=== PATIENT | female | born 1985 | race Two or more races ===

== ENCOUNTER 2022-01-22 10:14 | Day surgery (SDC) | payer OTHER ==
[~2022-01-22 10:14] MED LIST: MULTIPLE VITAM1 EAC2 PO; PROMETRIUM200 MG PO
== END 2022-01-22 21:00 | disposition home or self-care (01) ==
LOC: CIR.AMB 10:14
PROVIDERS: ATTEND Obstetrics & Gynecology Maternal & Fetal Medicine
DX: O02.1 Missed abortion (principal); O72.2 Delayed and secondary postpartum hemorrhage; Z88.2 Allergy status to sulfonamides; Z20.822 Contact with and (suspected) exposure to COVID-19

== ENCOUNTER 2024-11-02 07:00 | Day surgery (SDC) | payer OTHER ==
[2024-10-27 08:47] VITALS: BP 118/76
[2024-10-27 09:23] LABS: BASO % 0.2 % (0.1-1.2); EOS # 0.07 (0.04-0.54); EOS % 1.1 % (0.7-7.0); LYMPH # 1.54 (1.18-3.74); LYMPH % 24.1 % (19.3-53.1); MEAN PLATELET VOLUME 9.00 fl (9.4-12.4); MONO # 0.45 (0.24-0.82); MONO % 7.0 % (4.7-12.5); NEUT # 4.30 (1.56-6.13); NEUT % 67.1 % (34.0-71.1); RED CELL DISTRIBUTION WIDTH 12.0 % (11.6-14.4)
[2024-10-27 09:48] LABS: INR 1.03
[2024-10-27 09:53] LABS: ALT/SGPT 14.0 U/L (12-78); AST/SGOT 11.0 U/L (15-37); BILIRUBIN TOTAL 0.61 mg/dL (0.3-1.2); BUN CREA RATIO 13.0 (7.0-25.0); CREATININE SERUM 0.7 mg/dL (0.55-1.02); GFR 92.68; GLOBULINA 3.8 G/DL (2.4-3.5); GLUCOSE FASTING 94.0 mg/dL (65-100); OSMOLALITY SERUM 282.0 MOSM/KG (275-295)
[~2024-11-02] VITALS: Ht 162.6 cm; Wt 66.7 kg
[2024-11-02] MEDS ORDERED: POVIDONE-IODINE 118 ML BOTT TOP ONE ×2 (08:28→09:15)
[2024-11-02] MEDS ORDERED: PROMETHAZINE HCL 50 MG/ML AMPUL IM ONE (12:00)
[2024-11-02] MEDS ORDERED: MORPHINE SULFATE 4 MG/ML VIAL IV PRN (12:00)
[2024-11-02] MEDS ORDERED: MORPHINE SULFATE 4 MG/ML VIAL IV ONE (12:20)
== END 2024-11-02 16:20 | disposition home or self-care (01) ==
LOC: CIR.AMB 07:00
PROVIDERS: ATTEND Obstetrics & Gynecology
DX: D06.9 Carcinoma in situ of cervix, unspecified (principal); Z88.2 Allergy status to sulfonamides

== ENCOUNTER 2024-11-07 21:21 | Inpatient (IN) | payer OTHER ==
[~2024-11-07] VITALS: Ht 132.1 cm; Wt 68.0 kg
--- NOTE | 2024-11-07 21:48 | NUR ---
PTE ALERTA Y ORIENTADA X3 VERBALIZA QUE FUE OPERADA POR EL EN 11/02/24 BIOPSIA DE CONO EN LA CERVIS HOY COMENZO CON UN TRI SANGRADO Y EL MEDICO LA ENVIO A IBIS ER.
--- NOTE | 2024-11-07 22:40 | NUR ---
SE ORIENTA PACIENTE SOBRE TX MEDICO EL CUAL INDICA ENTENDER Y ACEPTAR. SE REALIZA EXTRACCION DE MUESTRAS BAJO MEDIDAS ASEPTICAS. SE LE JERALD PACIENTE ROPA PARA SER ADMITIDA OR.
[2024-11-07 23:19] LABS: BASO % 0.1 % (0.1-1.2); EOS # 0.09 (0.04-0.54); EOS % 0.6 % (0.7-7.0); LYMPH # 1.32 (1.18-3.74); LYMPH % 9.3 % (19.3-53.1); MEAN PLATELET VOLUME 9.20 fl (9.4-12.4); MONO # 0.71 (0.24-0.82); MONO % 5.0 % (4.7-12.5); NEUT # 11.95 (1.56-6.13); NEUT % 84.6 % (34.0-71.1); RED CELL DISTRIBUTION WIDTH 12.0 % (11.6-14.4)
[2024-11-07 23:37] LABS: INR 1.0
[2024-11-07 23:45] LABS: ALT/SGPT 43 U/L (12-78); AST/SGOT 28 U/L (15-37); BILIRUBIN TOTAL 0.38 mg/dL (0.3-1.2); BUN CREA RATIO 15 (7.0-25.0); CREATININE SERUM 0.60 mg/dL (0.55-1.02); GFR 110.72; GLOBULINA 2.6 G/DL (2.4-3.5); GLUCOSE FASTING 97 mg/dL (65-100); OSMOLALITY SERUM 282 MOSM/KG (275-295)
[2024-11-07 23:49] LABS: HCG QUANTITATIVE < 1 mUI/mL (1-3)
[2024-11-08] MEDS ORDERED: SIMETHICONE 125 MG CAPSULE PO SCH (01:00)
[2024-11-08] MEDS ORDERED: POVIDONE-IODINE 118 ML BOTT TOP ONE (01:30)
[2024-11-08 03:38] VITALS: BP 118/69
[2024-11-08 03:59] VITALS: O2SAT 100
[2024-11-08 04:38] VITALS: BP 118/69
[2024-11-08] MEDS ORDERED: KETOROLAC TROMETHAMINE 30 MG VIAL IV SCH (06:00)
[2024-11-08] MEDS ORDERED: METOCLOPRAMIDE HCL 10 MG in 0.9 % SODIUM CHLORIDE 50 ML IV SCH (06:00)
[2024-11-08 08:48] VITALS: BP 100/60
[2024-11-08] MEDS ORDERED: SOD FERRIC GLUC COMPLX/SUCROSE 125 MG in 0.9 % SODIUM CHLORIDE 100 ML IV SCH (09:00)
[2024-11-08 09:43] LABS: BASO % 0.1 % (0.1-1.2); EOS # 0.09 (0.04-0.54); EOS % 0.9 % (0.7-7.0); LYMPH # 1.88 (1.18-3.74); LYMPH % 19.1 % (19.3-53.1); MEAN PLATELET VOLUME 9.10 fl (9.4-12.4); MONO # 0.65 (0.24-0.82); MONO % 6.6 % (4.7-12.5); NEUT # 7.19 (1.56-6.13); NEUT % 73.1 % (34.0-71.1); RED CELL DISTRIBUTION WIDTH 12.0 % (11.6-14.4)
== END 2024-11-08 16:45 | disposition home or self-care (01) | DRG 921 ==
LOC: ER 21:21 → OB/GYN 22:35 → SEC-K 22:35 → OB/GYN 11-08 01:27
PROVIDERS: General Practice; ADMIT Obstetrics & Gynecology; ATTEND Obstetrics & Gynecology
PROC: 0UQGXZZ Repair Vagina, External Approach (ICD-10-PCS; principal; 2024-11-07 22:00)
DX: N99.820 Postprocedural hemorrhage of a genitourinary system organ or structure following a genitourinary system procedure (principal); T81.9XXA Unspecified complication of procedure, initial encounter; Y65.8 Other specified misadventures during surgical and medical care; N93.9 Abnormal uterine and vaginal bleeding, unspecified; D06.9 Carcinoma in situ of cervix, unspecified